=== PATIENT | male | born 1955 | race Caucasian/White ===

== ENCOUNTER 2022-12-20 12:17 | Emergency (ER) | payer MEDICARE, MEDICAID, SELFPAY ==
--- NOTE | 2022-12-20 12:22 | ED.GENADULT ---
HPI - General Adult General Chief complaint: General Medical Stated complaint: sugar too low Time Seen by Provider: 12/20/22 13:26 Source: patient Limitations: no limitations History of Present Illness HPI narrative: 67-year-old male with diabetes presents with low blood sugar readings. Patient is on Lantus 150 units every morning as well as Humalog with meals. Patient has otherwise been feeling well. Over last 24 hours in an episode 1 week ago he has had some low blood sugar readings. He gets particularly nervous around a blood sugar of 100 at which point he starts taking a lot of sugar. He denies any symptoms such as tremulousness, she weakness, lightheadedness, neurologic changes. However he gets significant anxiety that he describes as severe the point that he gets nervous about low blood sugars. There is no clear relieving or exacerbating features. He has a [employer] Jose A which constantly monitors blood sugar. Sometimes he gets and alert at 3:00 a.m. in the morning that his blood sugars are dropping at which point he wakes up to eat some sugar or something else. Related Data Allergies Allergy/AdvReac Type Severity Reaction Status Date / Time No Known Allergies Allergy Unverified 02/04/20 15:18 Review of Systems Review of Systems: CONSTITUTIONAL: Denies weight loss, fever and chills. HEENT: Denies changes in vision and hearing. RESPIRATORY: Denies SOB and cough. CV: Denies palpitations no CP. GI: Denies abdominal pain, nausea, vomiting and diarrhea. : Denies dysuria and urinary frequency. MSK: Denies myalgia and joint pain. SKIN: Denies rash and pruritus. NEUROLOGICAL: Denies headache and syncope. PSYCHIATRIC: Denies recent changes in mood. Denies anxiety and depression. All other ROS are negative unless in HPI [facility] Social History Social History Smoked in Last 30 Days: No Use of substances other than those prescribed or required for medical reasons: Yes Substance Use Type: Marijuana Substance Use Frequency: Monthly Advance Directives: No Advance Directives Information Provided: Yes Physical Exam ED Vital Signs: Vital Signs - 24 hr 12/20/22 12:23 12/20/22 14:59 Temperature 97.8 F 97.9 F Pulse Rate 103 H Respiratory Rate 18 18 Blood Pressure 131/83 155/63 H Pulse Oximetry 93 92 Oxygen Delivery Method Room Air Room Air BMI result Body Mass Index 38.0 GEN: Well developed, no acute distress, alert, oriented HEENT: Normocephalic, atraumatic, normal external ears, nose appears normal, no oropharyngeal edema or exudates Eyes: Normal to appearance Neck: Supple, no lymphadenopathy Respiratory: Talks in complete sentences, no respiratory distress, clear to auscultation bilaterally Cardiovascular: Regular rate and rhythm, no murmurs rubs or gallops Abdomen: Soft, nontender, nondistended, no guarding, no rebound Back: No CVA tenderness Extremities: No clubbing cyanosis or edema Neurologic: No focal neurologic deficits, cranial nerves 2-12 intact, strength is 5/5 bilaterally Skin: No rash Course Course Course Narrative: This is a rapid medical exam: Additional HPI, ROS, PE not included below will be deferred to primary provider. Patient is a 67-year-old male with history of DM presenting to the emergency department with complaint of low glucose levels at home. States his baseline is between 120-140, was at 100 today after eating approx 10 packs of sugar. States he also ate around 10:30 today. History of glucose levels dropping rapidly when levels go below 100. Denies any chest pain, shortness of breath, abdominal pain. Denies recent fevers or illness. Plan: POC glucose, labs, UA Reevaluation(s) Reevaluation #1: Is 220 in the afternoon. The patient's workup is complete. There is no evidence urinary tract infection. Blood sugars remained approximately 150. He is asymptomatic. He does have some evidence of either chronic or acute kidney disease however I am unable to compared to previous lab test. If in fact the creatinine is elevated, his insulin may be staying in his system a little bit longer than normal. As such, I will recommend he follow-up with his primary care provider for repeat basic metabolic panel next week. I will also have him reduce his insulin from 150 units of Lantus at in the morning to 120 units. We talked about keeping candies or glucose tablets here by. Also talked about following that up with a sandwich to help keep sustained elevated blood sugars during his low blood sugar test. If for any reason he had starts to feel symptomatic he an obviously come back to the emergency department for further evaluation and management. Time: 14:21 Medical Decision Making Medical Decision Making MDM Narrative: 67-year-old male with diabetes presents with low blood sugar. However, I did review his freestyle Jose A readings over the past week. His blood sugars have dropped as low as approximately 50. This is most noted at night. Patient is otherwise asymptomatic. His average blood sugar does appear to be in the range of 100-250. He denies any polyuria or polydipsia at this time however he does note that he does have polyuria when his blood sugars are elevated. His examination is benign. Will check routine laboratory analysis. At this point, I might recommend dropping his Lantus to 120 units in the morning. He could then follow up with his primary care provider for further insulin adjustment. Will check for urinary tract infection. There could be additional electrolyte abnormalities, device air, sampling error, laboratory a family. Differential Diagnosis Differential Diagnoses: The differential diagnosis associated with the presentation includes (See above) Admission/Observation Consideration of admission/observation: Escalation of care including admission/observation considered Lab Data [facility] Lab Attestation statement: I reviewed the patient's lab results. 12/20/22 12:40 12/20/22 12:40 Labs: Lab Results 12/20/22 12/20/22 12/20/22 Range/Units 12:25 12:40 12:40 WBC 8.7 (4.8-10.8) X10*3/uL RBC 5.06 (4.60-5.80) X10*6/uL Hgb 16.2 (14.0-18.0) g/dl Hct 46.8 (42.0-52.0) % MCV 92.5 (80.0-98.0) fL MCH 32.0 (27.0-33.0) pg MCHC 34.6 (31.0-36.0) g/dl RDW 13.2 (11.0-16.0) % Plt Count 211 (160-400) X10*3/uL MPV 9.1 L (9.4-12.4) fL Immature Gran % (Auto) 0.7 H (0.0-0.4) % Neut % (Auto) 55.5 (45-73) % Lymph % (Auto) 32.2 (20-40) % [place] % (Auto) 8.1 (2-11) % Eos % (Auto) 2.2 (0-4) % Baso % (Auto) 1.3 (0-2) % Lymph # (Auto) 2.8 (1.2-4.9) X10*3/uL [place] # (Auto) 0.7 (0.1-1.2) X10*3/uL Eos # (Auto) 0.2 (0.0-0.4) X10*3/uL Baso # (Auto) 0.1 (0.0-0.2) X10*3/uL Abs Immat Gran (auto) 0.06 H (0.00-0.03) X10*3/uL Absolute Neuts (auto) 4.8 (2.0-8.3) x10*3/uL Absolute Nucleated RBC 0.000 (0.0-0.012) X10*3/uL Nucleated RBC % (auto) 0.0 (0.0-0.2) /100WBC Sodium 138 (135-145) mmol/L Potassium 3.8 (3.3-5.1) mmol/L Chloride 100 (96-108) mmol/L Carbon Dioxide 23 (22-29) mmol/L Anion Gap 19 (12-20) BUN 25 H (9-16) mg/dL Creatinine 1.89 H (0.5-1.4) mg/dL Estim Creat Clear Calc 53.6 Estimated GFR 36 POC Glucose 124 H (60-115) mg/dL Random Glucose 133 H (60-115) mg/dL Calcium 10.2 (8.4-10.2) mg/dL Total Bilirubin 0.5 (0.0-1.0) mg/dL AST 20 (5-37) U/L ALT 17 (0-40) U/L Alkaline Phosphatase 62 (39-117) U/L Total Protein 8.2 H (6.5-8.0) g/dL Albumin 4.3 (3.5-5.0) g/dL Urine Color Urine Appearance Urine pH (5.0-9.0) Ur Specific [place] (1.005-1.025) Urine Protein (Neg-Trace) mg/dL Urine Glucose (UA) (Negative) mg/dL Urine Ketones (Negative) mg/dL Urine Blood (Negative) Urine Nitrite (Negative) Ur Leukocyte Esterase (Negative) Urine RBC (0-2) /HPF Urine WBC (0-5) /HPF Ur Squamous Epith Cells (0-2) /HPF Urine Bacteria (None Seen) Hyaline Casts (0-2) /LPF 12/20/22 12/20/22 Range/Units 13:22 13:55 WBC (4.8-10.8) X10*3/uL RBC (4.60-5.80) X10*6/uL Hgb (14.0-18.0) g/dl Hct (42.0-52.0) % MCV (80.0-98.0) fL MCH (27.0-33.0) pg MCHC (31.0-36.0) g/dl RDW (11.0-16.0) % Plt Count (160-400) X10*3/uL MPV (9.4-12.4) fL Immature Gran % (Auto) (0.0-0.4) % Neut % (Auto) (45-73) % Lymph % (Auto) (20-40) % [place] % (Auto) (2-11) % Eos % (Auto) (0-4) % Baso % (Auto) (0-2) % Lymph # (Auto) (1.2-4.9) X10*3/uL [place] # (Auto) (0.1-1.2) X10*3/uL Eos # (Auto) (0.0-0.4) X10*3/uL Baso # (Auto) (0.0-0.2) X10*3/uL Abs Immat Gran (auto) (0.00-0.03) X10*3/uL Absolute Neuts (auto) (2.0-8.3) x10*3/uL Absolute Nucleated RBC (0.0-0.012) X10*3/uL Nucleated RBC % (auto) (0.0-0.2) /100WBC Sodium (135-145) mmol/L Potassium (3.3-5.1) mmol/L Chloride (96-108) mmol/L Carbon Dioxide (22-29) mmol/L Anion Gap (12-20) BUN (9-16) mg/dL Creatinine (0.5-1.4) mg/dL Estim Creat Clear Calc Estimated GFR POC Glucose 142 H (60-115) mg/dL Random Glucose (60-115) mg/dL Calcium (8.4-10.2) mg/dL Total Bilirubin (0.0-1.0) mg/dL AST (5-37) U/L ALT (0-40) U/L Alkaline Phosphatase (39-117) U/L Total Protein (6.5-8.0) g/dL Albumin (3.5-5.0) g/dL Urine Color Yellow Urine Appearance Clear Urine pH 5.5 (5.0-9.0) Ur Specific [place] 1.025 (1.005-1.025) Urine Protein 30 (1+) H (Neg-Trace) mg/dL Urine Glucose (UA) 100 H (Negative) mg/dL Urine Ketones Trace (Negative) mg/dL Urine Blood Negative (Negative) Urine Nitrite Negative (Negative) Ur Leukocyte Esterase Negative (Negative) Urine RBC 0-2 (0-2) /HPF Urine WBC 0-5 (0-5) /HPF Ur Squamous Epith Cells 0-2 (0-2) /HPF Urine Bacteria None Seen (None Seen) Hyaline Casts 3-5 (0-2) /LPF Prescription Management I considered prescription management with: Antibiotic (Considering antibiotic use if he has urinary tract infection contributing to his symptoms.) Discharge Plan Discharge Clinical Impression: Low blood sugar in diabetes Patient Disposition: Still a Patient Instructions: Hypoglycemia in a Person with Diabetes (ED), Type 2 Diabetes Management for Adults (ED) Additional Instructions: You were seen in the emergency department for lower than normal blood sugar readings. I have reviewed your blood sugar log extensively. You do seem to be running a little bit lower than baseline today. I am recommending that he reduce her Lantus to 120 units in the morning as compared to 150 units which are currently taking. You should follow-up with her primary care provider next week to re-evaluate her insulin dosage. In addition, I am recommending that you take candies or glucose tablets with you for any potential symptomatic hypoglycemia. Finally, your creatinine was 1.89 which is a measure of your kidney function. I am recommending next week they follow-up with repeat test. I cannot compare this any previous values as I am not able to access her previous laboratory results. Please discuss this further with her primary care provider Referrals: Pam Domínguez, [employer] [Primary Care Provider] - 2 days Interventions: ED Discharge Assessment Last Done: 12/20/22 15:06 Discharge Date/Time: 12/20/22 15:07
[2022-12-20 12:23] VITALS: BP 131/83; PULSE 103; RESP 18; TEMP 36.6; O2SAT 93; BMI 38.0
[2022-12-20 12:30] LABS: Glucose, Whole Blood 124 mg/dL (60-115)
[2022-12-20 12:45] LABS: MANUAL DIFF FLAG NO
[2022-12-20 12:50] LABS: Basophils Absolute Auto 0.1 X10*3/uL (0.0-0.2); Basophils Percent Auto 1.3 % (0-2); Eosinophils Absolute Auto 0.2 X10*3/uL (0.0-0.4); Eosinophils Percent Auto 2.2 % (0-4); Hematocrit 46.8 % (42.0-52.0); Hemoglobin 16.2 g/dl (14.0-18.0); Imm Gran Abs Auto 0.06 X10*3/uL (0.00-0.03); Imm Gran Pct Auto 0.7 % (0.0-0.4); Lymphocytes Absolute Auto 2.8 X10*3/uL (1.2-4.9); Lymphocytes Percent Auto 32.2 % (20-40); Mean Corpuscular HGB Conc 34.6 g/dl (31.0-36.0); Mean Corpuscular Volume 92.5 fL (80.0-98.0); Mean Platelet Volume 9.1 fL (9.4-12.4); Monocytes Absolute Auto 0.7 X10*3/uL (0.1-1.2); Monocytes Percent Auto 8.1 % (2-11); Neutrophils Absolute Auto 4.8 x10*3/uL (2.0-8.3); Neutrophils Percent Auto 55.5 % (45-73); Platelet Count 211 X10*3/uL (160-400); Red Blood Count 5.06 X10*6/uL (4.60-5.80); Red Cell Distribution Width 13.2 % (11.0-16.0); White Blood Count 8.7 X10*3/uL (4.8-10.8)
[2022-12-20 13:01] LABS: Alanine Aminotransferase 17 U/L (0-40); Albumin Level 4.3 g/dL (3.5-5.0); Alkaline Phosphatase 62 U/L (39-117); Anion Gap 19 (12-20); Aspartate Amino Transferase 20 U/L (5-37); Bilirubin Total 0.5 mg/dL (0.0-1.0); Blood Urea Nitrogen 25 mg/dL (9-16); Calcium 10.2 mg/dL (8.4-10.2); Carbon Dioxide 23 mmol/L (22-29); Chloride 100 mmol/L (96-108); Creatinine Clr Calc Pharmacy 53.6; Estimated Glomerular Filt Rate 36; Glucose Random 133 mg/dL (60-115); Potassium 3.8 mmol/L (3.3-5.1); Sodium 138 mmol/L (135-145); Total Protein 8.2 g/dL (6.5-8.0)
[2022-12-20 13:25] LABS: Glucose, Whole Blood 142 mg/dL (60-115)
[2022-12-20 14:09] LABS: Appearance Urine Clear; Color Urine Yellow; Glucose Urine UA 100 mg/dL (Negative); Leukocyte Esterase Urine Negative (Negative); Nitrite Urine Negative (Negative); PH 5.5 (5.0-9.0); Specific Gravity - Urine 1.025 (1.005-1.025); UMIC TRIGGER UACC YES; Urine Blood Negative (Negative); Urine Ketones Trace mg/dL (Negative); Urine Protein 30 (1+) mg/dL (Neg-Trace)
[2022-12-20 14:11] LABS: Bacteria Urine None Seen (None Seen); RBC Urine 0-2 /HPF (0-2); Squamous Epithelial Cell Urine 0-2 /HPF (0-2); WBC Urine 0-5 /HPF (0-5)
[2022-12-20 14:59] VITALS: BP 155/63; RESP 18; TEMP 36.6; O2SAT 92
== END 2022-12-20 15:07 | disposition still patient (30) ==
LOC: HO.ED 13:33
PROVIDERS: Registered Nurse Emergency; Emergency Provider Emergency Medicine; PCP Nurse Practitioner Family
DX: E11.649 Type 2 diabetes mellitus with hypoglycemia without coma (principal); R79.89 Other specified abnormal findings of blood chemistry; Z79.899 Other long term (current) drug therapy
CPT/HCPCS: 36415; 80053; 81001; 82947; 85025; 99283; 99284